=== PATIENT | female | born 1955 | race Caucasian/White ===

== ENCOUNTER → 2017-10-27 | Outpatient (CLI) | payer OTHER | LOC: CIMAGING 14:31 | PROVIDERS: ATTEND Physician Assistant Medical | DX: K59.00 Constipation, unspecified (principal); R10.9 Unspecified abdominal pain; R93.3 Abnormal findings on diagnostic imaging of other parts of digestive tract | CPT/HCPCS: 74019-PO ==

== ENCOUNTER → 2017-11-10 | Outpatient (CLI) | payer OTHER | LOC: FIMAGING 11:48 | PROVIDERS: ATTEND Physician Assistant Medical | DX: K59.01 Slow transit constipation (principal) ==

== ENCOUNTER 2018-03-26 10:13 | Emergency (ER) | payer OTHER ==
--- NOTE | 2018-03-26 11:12 | EDPHY ---
General - History Smoking Status: Former smoker Time Seen by Provider: 03/26/18 11:04 Narrative: CHIEF COMPLAINT: "kidney pain" HISTORY OF PRESENT ILLNESS: Patient complains of left-sided "kidney pain." Pain started last night. It is on the left side. It is severe at times, currently mild. No position of comfort. Does not radiate. No urinary complaints for the patient. No fever, chills, abdominal pain. No nausea or vomiting. No trauma or injury. She is worried about the kidney itself that she has a previous diagnosis of "kidney disease." No other associated complaints or modifying factors. REVIEW OF SYSTEMS: Ten systems reviewed and are negative unless otherwise noted in the HPI PCP: Dr. Bryant Gastelum SPECIALISTS: Dr. Reilly, nephrology Dr. Monreal, urology Psychiatry Dermatology Endocrinology PAST MEDICAL HISTORY: "Kidney disease,"bipolar disorder, asthma, overactive bladder, incontinence PAST SURGICAL HISTORY: No recent surgical history SOCIAL HISTORY: Nonsmoker. Lives here independently. FAMILY HISTORY: Noncontributory EXAMINATION General Appearance: Alert, no distress Head: normocephalic, atraumatic Eyes: Pupils equal and round, no conjunctival pallor or injection ENT, Mouth: Mucous membranes moist Neck: Normal inspection, supple, non-tender Respiratory: Lungs are clear to auscultation Cardiovascular: Regular rate and rhythm Gastrointestinal: Abdomen is soft and nontender. There is no tympany. No rigidity. No guarding. There is mild tenderness of the left CVA. Back: non-tender, no bony abnormalities Neurological: A&O, nonfocal, normal gait Skin: Warm and dry, no rash. No petechiae or purpura Extremities: Nontender, no pedal edema Psychiatric: Mood and affect normal DIFFERENTIAL DIAGNOSES: Including but not limited to renal colic, nephrolithiasis, ureterolithiasis, UTI , pyelonephritis, muscular strain MDM: 11:05 a.m. Acute left flank pain that is intermittent and suggest renal colic. Vital signs are within normal limits. Urinalysis laboratory studies have been ordered. She is in no acute distress with normal vital signs. She does not meet SIRS criteria. Her abdominal exam is benign. 11:45 a.m. Laboratory studies reveal mild elevation of creatinine, which is normal for the patient. Mild elevation of alkaline phosphatase which is at baseline for the patient. There is no leukocytosis. Urinalysis does not reveal any signs of infection or hematuria. 11:50 a.m. Notified by radiologist Dr. Mann. CT scan of the abdomen pelvis reveals no stone. There is some mild thickening of the bladder. There is constipation noted. 12:05 p.m. Patient re-evaluated. She is resting comfortably with minimal pain at this time. I discussed the negative findings and that I do not have a source for pain at this time. I will discuss with Dr. Johnson. 12:15 p.m. Patient re-evaluated, and I discussed the case with Dr. Johnson. I discussed possibility of musculoskeletal source. We discuss medications for pain and muscle relaxant. We discussed contacting primary care physician for outpatient follow-up from no also discussed returning here in 24 hr if she does not have resolution of her symptoms, or return sooner for any worsening pain, urinary complaints, fever, chills or abdominal pain. She is comfortable this plan and discharged home stable condition. SUPERVISION: Patient was independently examined, but I discussed the case with my secondary supervising physician Dr. Johnson ([facility]) The patient was evaluated and managed by the physician clothing sales assistant. I have reviewed this chart and I agree with the findings and plan of care as documented , as indicated by my signature. I am the secondary supervising physician. ( Celine Johnson) - Objective Vital Signs: Initial Vital Signs Temperature (C) 36.5 C 03/26/18 10:14 Heart Rate 76 03/26/18 10:14 Respiratory Rate 16 03/26/18 10:14 Blood Pressure 111/76 03/26/18 10:14 O2 Sat (%) 96 03/26/18 10:14 O2 Delivery Mode Room Air Allergies/Adverse Reactions: amoxicillin [Amoxicillin] Allergy (Verified 07/07/15 12:15) Anaphylaxis Cephalosporins Allergy (Verified 07/07/15 12:15) Anaphylaxis Penicillins Allergy (Verified 07/07/15 12:15) Anaphylaxis ENVIRONMENTAL Allergy (Mild, Uncoded 04/02/12 17:11) RUNNY NOSE Home Medications: Medication Instructions Recorded Levothyroxine Sodium [Synthroid] 100 mcg PO 01/14/11 PARoxetine HCL [Paxil] 40 mg PO DAILY 01/14/11 QUETIAPINE FUMARATE [Seroquel Xr] 300 mg PO 01/14/11 Zolpidem Tartrate [Ambien] 10 mg PO 01/14/11 lamoTRIgine [Lamictal (Green)] each PO 01/14/11 Benztropine Mesylate [Cogentin 5 mg PO 04/02/12 (RX)] cloZAPine [Clozapine] 200 mg PO 04/02/12 Aricept 03/26/18 Cyclobenzaprine [Flexeril 10 MG 10 mg PO TID PRN #7 tab 03/26/18 (*)] Flomax 03/26/18 Hydrocodone/APAP 5/325 [[place] 1 - 2 tab PO Q4H PRN #7 tab 03/26/18 5/325 (*)] Namenda 10 mg 03/26/18 Vit D3-Vit K/Berberine/Hops 03/26/18 Zyprexa 03/26/18 Laboratory Results: Laboratory Results 03/26/18 11:25 03/26/18 11:25 Departure - Departure Disposition: Home, Routine, Self-Care Clinical Impression: Flank pain, acute, CKD (chronic kidney disease) Condition: Good Instructions: Flank Pain (ED) Additional Instructions: 1. Medications as prescribed as needed 2. Contact your primary care physician today for outpatient follow-up within the next 48 hr 3. Return here for any worsening pain, nausea, vomiting, fever or chills, urinary complaints 4. Return here if you do not have complete resolution within 24 hr Referrals: Petra Soria MD [Primary Care Provider] - As per Instructions Abel Reilly MD [Medical Doctor] - As per Instructions Prescriptions: Cyclobenzaprine [Flexeril 10 MG (*)] 10 mg PO TID PRN #7 tab PRN Reason: Spasms Hydrocodone/APAP 5/325 [[place] 5/325 (*)] 1 - 2 tab PO Q4H PRN #7 tab PRN Reason: Pain, Moderate
[2018-03-26 11:39] LABS: PLATELET COUNT 257 10^3/uL (150-400)
[2018-03-26 11:56] LABS: INR 0.97 (0.83-1.16); PROTIME(PATIENT) 13.1 SEC (12.0-15.0)
[2018-03-26 12:41] VITALS: BP 140/76
== END 2018-03-26 12:41 | disposition home or self-care (01) ==
DX: N18.9 Chronic kidney disease, unspecified (principal); J45.909 Unspecified asthma, uncomplicated; Z87.891 Personal history of nicotine dependence

== ENCOUNTER → 2018-06-21 | Outpatient (CLI) | payer OTHER | LOC: SUPIMAGING 09:31 | PROVIDERS: ATTEND Family Medicine | DX: M19.071 Primary osteoarthritis, right ankle and foot (principal) | CPT/HCPCS: 73630-PN ==

== ENCOUNTER → 2018-06-21 | Outpatient (CLI) | payer OTHER | LOC: SUPIMAGING 08:30 | PROVIDERS: ATTEND Family Medicine | DX: M17.12 Unilateral primary osteoarthritis, left knee (principal) | CPT/HCPCS: 73564-PN ==